=== PATIENT | female | born 1990 | race Two or more races ===

== ENCOUNTER → 2023-10-20 | Outpatient (CLI) | payer OTHER | END | disposition home or self-care (01) | LOC: PRENATAL 08:27 | PROVIDERS: ATTEND Obstetrics & Gynecology Maternal & Fetal Medicine | DX: O36.80X0 Pregnancy with inconclusive fetal viability, not applicable or unspecified (principal); Z36.82 Encounter for antenatal screening for nuchal translucency; O99.282 Endocrine, nutritional and metabolic diseases complicating pregnancy, second trimester; Z3A.11 11 weeks gestation of pregnancy ==

== ENCOUNTER 2024-02-09 15:38 | Outpatient (CLI) | payer OTHER | END 2024-02-09 15:39 | disposition home or self-care (01) | LOC: PRENATAL 15:38 | PROVIDERS: ATTEND Obstetrics & Gynecology Maternal & Fetal Medicine | DX: O35.9XX0 Maternal care for (suspected) fetal abnormality and damage, unspecified, not applicable or unspecified (principal); O35.3XX0 Maternal care for (suspected) damage to fetus from viral disease in mother, not applicable or unspecified; O44.00 Complete placenta previa NOS or without hemorrhage, unspecified trimester; O99.280 Endocrine, nutritional and metabolic diseases complicating pregnancy, unspecified trimester; Z3A.27 27 weeks gestation of pregnancy ==

== ENCOUNTER 2024-02-27 10:17 | Outpatient (CLI) | payer OTHER | END 2024-02-27 10:18 | disposition home or self-care (01) | LOC: PRENATAL 10:17 | PROVIDERS: ATTEND Obstetrics & Gynecology Maternal & Fetal Medicine | DX: Z76.1 Encounter for health supervision and care of foundling (principal) ==

== ENCOUNTER → 2024-03-15 14:43 | Outpatient (CLI) | payer OTHER | END | disposition home or self-care (01) | LOC: PRENATAL 14:43 | PROVIDERS: ATTEND Obstetrics & Gynecology Maternal & Fetal Medicine | DX: O26.843 Uterine size-date discrepancy, third trimester (principal); O24.419 Gestational diabetes mellitus in pregnancy, unspecified control; O99.283 Endocrine, nutritional and metabolic diseases complicating pregnancy, third trimester; Z3A.32 32 weeks gestation of pregnancy ==

== ENCOUNTER 2024-04-27 10:15 | Inpatient (IN) | payer OTHER ==
[~2024-04-27] VITALS: Ht 149.9 cm; Wt 63.5 kg
[2024-04-27 09:57] VITALS: BP 124/86; O2SAT 99
[2024-04-27] MEDS ORDERED: RINGERS SOLUTION,LACTATED 1,000 ML IV SCH (10:45)
[2024-04-27 10:53] LABS: HEMATOCRIT 35.6 % (36.0-45.00); HEMOGLOBIN 12.1 g/dL (12.0-15.00); MEAN CORPUSCULAR HEMOGLOBIN 29.9 pg (27.00-32.0); PLATELET COUNT 211 K/uL (150-450); RED BLOOD COUNT 4.04 M/uL (4.00-6.00); RED CELL DISTRIBUTION WIDTH 13.9 % (11.5-14.5)
[2024-04-27 10:54] LABS: PH,URINE 7.5 (5.0-8.0); URINE APPEARANCE Clear; URINE BILIRRUBIN Negative (NEGATIVE); URINE BLOOD Negative; URINE COLOR Yellow; URINE GLUCOSE Negative (NEGATIVE); URINE KETONE Negative (NEGATIVE); URINE LEUKOCYTE Trace; URINE NITRATE Negative; URINE PROTEIN Negative (NEGATIVE); URINE UROBILINOGEN 0.2 E.U./dl
[2024-04-27 10:58] LABS: URINE BACTERIA 3745.8 uL (0.0-1933); URINE EPITHELIAL CELLS 96.9 uL (0.0-38.8); URINE WBC 38.4 uL (0.0-23.2)
[2024-04-27 11:13] LABS: URINE RBC 1.3 uL (0.0-20.8)
[2024-04-27 11:18] LABS: INR < 0.93; PARTIAL THROMBOPLASTIN TIME 26.6 SECONDS (22.0-34.0)
[2024-04-27 11:24] LABS: BILIRUBIN TOTAL 0.55 mg/dL (0.3-1.2); CALCIUM 8.7 mg/dL (8.5-10.1); CREATININE SERUM 0.56 mg/dL (0.55-1.02); GFR 125.45; GLOBULINA 3.8 G/DL (2.4-3.5); POTASSIUM 4.06 mEq/L (3.5-5.1); TOTAL PROTEIN 6.8 gm/dL (6.4-8.2)
[2024-04-27] MEDS ORDERED: PRENATAL TABLE1 EAC1 PO (11:32)
[2024-04-27] MEDS ORDERED: LEVOTHYROXINE25 MCG PO (11:32)
[2024-04-27] MEDS ORDERED: CLINDAMYCIN PHOSPHATE 150 MG/ML (900mg) IV SCH (11:45)
[2024-04-27] MEDS ORDERED: OXYTOCIN 10 UNITS/ML VIAL IV ONE (12:15)
[2024-04-27] MEDS ORDERED: ERYTHROMYCIN BASE OPHT 1GM EACH TUBE OP ONE (12:15)
[2024-04-27] MEDS ORDERED: PROMETHAZINE HCL 50 MG/ML AMPUL IM PRN (13:30)
[2024-04-27] MEDS ORDERED: MEPERIDINE HCL/PF 50 MG/ML VIAL IM PRN (13:30)
[2024-04-27] MEDS ORDERED: MORPHINE SULFATE 4 MG/ML VIAL IV ONE (15:30)
[2024-04-27 16:15] VITALS: BP 126/75
[2024-04-27 18:11] LABS: HEMOGLOBIN 12.4 g/dL (12.0-15.00); MEAN CELL VOLUME 87.2 fL (80.00-100.00); MEAN CORPUSCULAR HEMOGLOBIN 29.3 pg (27.00-32.0); MEAN CORPUSCULAR HGB CONC 33.7 g/dl (32.0-36.0); PLATELET COUNT 203 K/uL (150-450); RED BLOOD COUNT 4.24 M/uL (4.00-6.00); RED CELL DISTRIBUTION WIDTH 13.8 % (11.5-14.5)
[2024-04-27 20:00] VITALS: BP 124/79
[2024-04-28] VITALS: BP 119/76
[2024-04-28 08:00] VITALS: BP 113/73
[2024-04-28] MEDS ORDERED: OxyCODONE HCL/APAP UD (PERCOCET) PO PRN (08:00)
[2024-04-28] MEDS ORDERED: DOCUSATE SODIUM 100MG CAP PO SCH (09:00)
[2024-04-28] MEDS ORDERED: PNV,CALCIUM 72/IRON/FOLIC ACID 1 TAB TABLET PO SCH (09:00)
[2024-04-28] MEDS ORDERED: SIMETHICONE 125 MG CAPSULE PO SCH (09:00)
[2024-04-28 15:00] VITALS: BP 111/75
[2024-04-28 20:00] VITALS: BP 117/77
[2024-04-29] VITALS: BP 95/61
[2024-04-29 08:17] VITALS: BP 110/71
[2024-04-29] MEDS ORDERED: IBUprofen 600 MG TABLET PO PRN (13:00)
[2024-04-29 13:35] VITALS: BP 118/81
[2024-04-29 16:25] VITALS: BP 120/70
[2024-04-30 00:19] VITALS: BP 113/79
[2024-04-30 05:00] VITALS: BP 111/79
[2024-04-30 08:14] VITALS: BP 115/80
== END 2024-04-30 10:21 | disposition home or self-care (01) | DRG 788 ==
LOC: LDR 10:15 → OB/GYN 14:14
PROVIDERS: ADMIT Obstetrics & Gynecology; ATTEND Obstetrics & Gynecology
PROC: 4A1HXCZ Monitoring of Products of Conception, Cardiac Rate, External Approach (ICD-10-PCS; 2024-04-27)
PROC: 10D00Z1 Extraction of Products of Conception, Low, Open Approach (ICD-10-PCS; principal; 2024-04-27 11:00)
DX: O82 Encounter for cesarean delivery without indication (principal); Z3A.38 38 weeks gestation of pregnancy; Z37.0 Single live birth; Z20.822 Contact with and (suspected) exposure to COVID-19